=== PATIENT | male | born 1955 | race Two or more races ===

== ENCOUNTER 2021-03-11 07:55 | Day surgery (SDC) | payer OTHER | END 2021-03-11 13:35 | disposition home or self-care (01) | LOC: AMB-ENDOS 07:55 | PROVIDERS: ATTEND Surgery | DX: D12.5 Benign neoplasm of sigmoid colon (principal); Z20.822 Contact with and (suspected) exposure to COVID-19 ==

== ENCOUNTER 2022-02-03 15:05 | Outpatient (CLI) | payer OTHER ==
[~2022-02-03 15:05] MED LIST: ACID REDUCER20 M1 PO; COZAAR100 MG PO; GLIMEPIRIDE4 M1 PO; LASIX20 MG PO; PROZAC10 MG PO; TRULICITY1.5 MG/0.5
== END 2022-02-03 15:11 | disposition home or self-care (01) ==
LOC: LAB 15:05
PROVIDERS: ATTEND Surgery
DX: Z03.818 Encounter for observation for suspected exposure to other biological agents ruled out (principal)

== ENCOUNTER 2022-02-05 06:00 | Day surgery (SDC) | payer OTHER ==
[~2022-02-05] VITALS: Ht 172.7 cm; Wt 93.0 kg
[2022-02-05] MEDS ORDERED: PERCOCET 5-3251 EACH PO (09:35)
[2022-02-05] MEDS ORDERED: RECTICARE30 GM TOP (09:35)
== END 2022-02-05 12:45 | disposition home or self-care (01) ==
LOC: CIR.AMB 06:00
PROVIDERS: ATTEND Surgery
DX: A63.0 Anogenital (venereal) warts (principal); Z20.822 Contact with and (suspected) exposure to COVID-19; Z88.8 Allergy status to other drugs, medicaments and biological substances; I10 Essential (primary) hypertension; Z79.84 Long term (current) use of oral hypoglycemic drugs; E11.9 Type 2 diabetes mellitus without complications